=== PATIENT | female | born 1950 | race Caucasian/White ===

== ENCOUNTER 2022-03-05 15:05 | Inpatient (IN) | payer MEDICARE ==
[~2022-03-05] VITALS: Ht 157.5 cm; Wt 114.7 kg
[2022-03-05] MEDS ORDERED: BUSPIRONE HCL10 MG PO (15:23)
[2022-03-05] MEDS ORDERED: METFORMIN HCL500 MG PO (15:23)
[2022-03-05] MEDS ORDERED: PAROXETINE HCL10 MG PO (15:24)
[2022-03-05] MEDS ORDERED: LOVASTATIN20 MG PO (15:24)
[2022-03-05] MEDS ORDERED: LEVOTHYROXINE75 MC1 PO (15:25)
[2022-03-05] MEDS ORDERED: LISINOPRIL10 MG PO (15:25)
[2022-03-05] MEDS ORDERED: HYDROCHLOROTHIA25 MG PO (15:25)
[2022-03-05] MEDS ORDERED: PAXIL40 MG PO (15:26)
[2022-03-05] MEDS ORDERED: LATANOPROST2.5 ML OU (15:26)
[2022-03-05] MEDS ORDERED: BRIMONIDINE TART5 ML OU (15:27)
[2022-03-05] MEDS ORDERED: DORZOLAMIDE-TIM10 ML OD (15:27)
--- NOTE | 2022-03-05 18:15 | NUR ---
Report received from Luisa BOWDEN. Awaiting pt arrival to med surg unit room 112.
--- NOTE | 2022-03-05 18:40 | NUR ---
Pt arrives to med surg unit via stretcher. ON 4L NC O2, spo2 93%, no SOB, cough occasional, productive. VSS, A+O, IVF infusing WNL. IV ABx infusing. CBG checked 169, sandwich box provided. Pt ambulated to with SBA for 100ml void, concentrated and odorous. Tele #[address] Daughter Apple in room.
--- NOTE | 2022-03-05 19:34 | NUR ---
REPORT RECEIVED FROM DENNISE BRIGHT. pt RESTING IN BED AWAKE. IVF INFUSING WNL. IV ANTIBIOTIC COMPLETE. pt FORGETFUL OF CALL LIGHT, REORIENTED TO HOW TO CALL. BED ALARM SET. HR REGULAR RHYTHM ON TELE .
--- NOTE | 2022-03-05 20:10 | NUR ---
COMPLETED ADMISSION HISTORY, PT THEN UP TO [facility] [place], INCREASED SOB, WITH COMPLAINT OF LIGHT HEADNESS. VOIDED LESS THAN 25CC, PT STATES THAT SHE HASN'T BEEN DRINKING MUCH IN THE PAST 2 WEEKS. CHOSE TO SIT UP IN THE RECLINER CHAIR, THAT IS WHAT SHE SLEEPS ON AT HOME. REPLACED TELE LEADS, ALL PERSONAL SUPPLIES WITHIN REACH. WATER BOTTLE NEAR HER, AND SHE IS ENCOURAGED TO DRINK IT. ONCE IN RECLINER CHAIR, CHECKED O2 SATS, 90 ON 4L. PT STATES THAT SHE HAD A SLEEP STUDY DONE IN THE PAST, AND COULDN'T FINISH IT DUE TO THE MASK. BOUGHT A CPAP MACHINE FOR HOME, BUT DOESN'T LIKE THE MASK AND DOESN'T USE IT. WHEN ASKED ABOUT HER HOME OXYGEN SHE SAID THAT SHE BOUGHT A "MACHINE", BUT DOESN'T USE IT. PT STATED UNDERSTANDING OF NOT TO GET UP WITHOUT STAFF. CALL LIGHT IN HER LAP.
--- NOTE | 2022-03-05 21:12 | NUR ---
pt AWAKE, UP IN CHAIR. CBG 260, SS INSULIN ADMINSITERED. PO MEDICATIONS ADMINISTERED, EDUCATION PROVIDED. IV SITE FLUSHED WNL, IVF INFUSING ORDERED. ASSESSMENT COMPLETE. SPORADIC WHEEZES AUSCULTATED. 4.5L OXYGEN BY NC IN PLACE, SPO2 WNL. pt DEMONSTRATES ABILITY TO USE CALL LIGHT BEFORE GETTING OUT OF BED. CALL LIGHT AND ICE WATER IN REACH, PO FLUIDS ENCOURAGED. NO ADDITIONAL REQUESTS.
--- NOTE | 2022-03-05 21:31 | EKG ---
[facility] [address] [facility] [place], [place] [address] Signed Normal sinus rhythm Possible Left atrial enlargement Low voltage QRS Borderline ECG No previous ECGs available Confirmed by SEAN JEROME MD ([id number]) on 03/05/2022 9:30:55 PM Electronically Signed By: SEAN JEROME MD [id number]/05/[id number] PATIENT NAME: JASON HERNANDEZ UNIQUE Electrocardiogram DATE OF : 52 PHYSICIAN: SEAN JEROME MD REPORT #: [id number] REPORT IS CONFIDENTIAL AND NOT TO BE RELEASED WITHOUT AUTHORIZATION
--- NOTE | 2022-03-05 22:48 | NUR ---
CHECKED ON pt. RESTING IN CHAIR WITH EYES CLOSED. BREATHING EQUAL AND UNLABORED. NO DISTRESS NOTED. 4.5L OXYGEN BY NC IN PLACE. CALL LIGHT IN LAP. IVF INFUSING.
--- NOTE | 2022-03-05 23:11 | NUR ---
CALL LIGHT ANSWERED. SBA TO BSC FOR VOID, 200 ML CONCENTRATED URINE. BACK TO CHAIR. TELE IN PLACE. IVF INFUSING WNL. CALL LIGHT IN LAP. NO ADDITIONAL REQUESTS.
--- NOTE | 2022-03-06 01:50 | NUR ---
CALL LIGHT ANSWERED. SBA TO BSC TO VOID 200 ML CONCENTRATED URINE. GAIT STEADY. PT ABLE TO DO OWN AMPARO CARE. BACK TO RECLINER. PT REPORTS SOB WITH ACTIVITY. SpO2 93% WITH 4.5L/NC. HR 70'S. PT WITH NON PRODUCTIVE COUGH. BLANKET PROVIDED. NO FURTHER NEEDS. CALL LIGHT IN REACH.
--- NOTE | 2022-03-06 02:24 | NUR ---
IN pt ROOM FOR VS. pt AWAKE, UP IN CHAIR. DENIES SOB AT REST. VS COMPLETE, STABLE, SPO2 97% WITH 4.5L OXYGEN BY NC IN PLACE, TITRATED OXYGEN TO 2L, SPO2 93-95%. pt COUGHING, PRODUCTIVE, YELLOW TINGED SPUTUM. ASSESSMENT COMPLETE. EXPIRATORY WHEEZES AUSCULTATED, COARSE LLL. TELE IN PLACE, REGULAR RHYTHM. CALL LIGHT IN REACH. IVF INFUSING WNL. PO FLUIDS ENCOURAGED. NO ADDITIONAL REQUESTS.
--- NOTE | 2022-03-06 04:30 | NUR ---
CALL LIGHT ANSWERED. SBA TO BEDSIDE COMMODE. PATIENT IS BACK IN CHAIR. DENIES ANY FURTHER CARE NEEDS. CALL LIGHT WITHIN REACH.
--- NOTE | 2022-03-06 05:03 | NUR ---
pt AWAKE RESTING IN CHAIR. SPO2 WNL W 2L OXYGEN BY NC IN PLACE. pt DENIES SOB. VSS. DRINKING WATER. IVF INFUSING WNL. CALL LIGHT IN REACH.
--- NOTE | 2022-03-06 05:45 | NUR ---
pt TITRATED TO 2L OXYGEN BY NC THIS SHIFT. SOB WITH EXERTION, TITRATED TO 4L OXYGEN WITH MOVEMENT. SBA TO BSC FOR QS VOIDS. IV SL AFTER ONE LITER FLUID INFUSION COMPLETE PER ORDERS WNL. USING CALL LIGHT APPROPRIATELY. HR REGULAR RHYTHM ON TELE 10.
--- NOTE | 2022-03-06 05:54 | NUR ---
pt RESTING IN CHAIR, PO MEDICATION ADMINISTERED. pt DENIES ADDITIONAL NEEDS AT THIS TIME. CALL LIGHT IN REACH.
--- NOTE | 2022-03-06 07:15 | NUR ---
Report received from Ronda BOWDEN. Pt resting in bed with eyes closed, even and unlabored respirations on 2L NC O2. No needs identified at this time, call light in reach, will continue plan of care.
--- NOTE | 2022-03-06 08:52 | NUR ---
Scheduled medications administered and assessment complete. Pt resting in chair, awakens to voice/touch. Pt has occasional productive cough with yellow/green phlegm, exp wheeze and coarse lung sounds noted. pt ambulates to BR with SBA to void- concentrated urine noted. Back to chair for breakfast. IV ABX infusing WNL. 3 units SS insulin provided. Tele #[address] VSS, A+O. Pt educated extensively about current illness and tx. Call light in reach.
--- NOTE | 2022-03-06 10:32 | NUR ---
PATIENT SITTING IN CHAIR WATCHING TV. DAUGHTER IN ROOM. VITALS AND I&O'S CHARTED. CALL LIGHT IN REACH. NO FURTHER NEEDS AT THIS TIME.
--- NOTE | 2022-03-06 10:52 | NUR ---
Tatyana is awake and alert this morning. Upon entering the room Tatyana is visiting with her daughter Saniya Monroy and kaley alejo Tatyana plans to discarge to home where she lives with her adult children and granddaughter. Tatyana feels that her discharge plan is safe. She states that family members are in the home to help if needed. Saniya Monroy will be home with her to drive her for prescriptions, appts., etc. Both deny questions or concerns at this time. Tatyana does feel that she has the resources that she need to continuous pickling line pickler prescriptions, pay utility bills, food, etc.
--- NOTE | 2022-03-06 11:50 | NUR ---
Rounded on patient who is sitting up in chair. No SOB at this time, saline locked, A+O. Daughter at bedside. No needs at this time. Call light in reach.
[2022-03-06] MEDS ORDERED: DAILY VALUE1 EACH PO (12:46)
[2022-03-06] MEDS ORDERED: VITAMIN B-1250 MCG PO (12:47)
[2022-03-06] MEDS ORDERED: COLLANEX1 GM PO (12:48)
--- NOTE | 2022-03-06 14:13 | NUR ---
PATIENT SITTING UP IN CHAIR TALKING WITH DAUGHTER. VITALS AND I&O'S CHARTED. PATIENT SET UP FOR SHOWER. PATIENT SHOWERED INDEPENDENTLY. CALL LIGHT IN REACH. NO FURTHER NEEDS AT THIS TIME.
--- NOTE | 2022-03-06 15:38 | NUR ---
Assessment of pt complete. Pt sitting up in chair on her computer, on 2L NC, 94% at this time with no SOB. Pt states that shower was "helpful" and she "coughed up a lot of gunk". Yellow/green sputum noted on tissue. Pt daughter in room, attentive to patient and engaged in care.
--- NOTE | 2022-03-06 16:25 | NUR ---
REPORT RECEIVED FROM DENNISE BRIGHT. THIS RN ASSUMING CARE OF PT.
--- NOTE | 2022-03-06 16:37 | NUR ---
Patient's daughter Saniya takes home all of patients home medication bottles at this time.
--- NOTE | 2022-03-06 16:57 | NUR ---
PT HERE FOR COMMUNITY ACCUIRED RIGHT LOWER LOBE PNEUMONIA. PT UP WITH STAND BY ASSIST TO RESTROOM AND TO CHAIR FOR MEALS THIS SHIFT. SHORT OF BREATH WITH ACTIVITIES. COUGH CONTINUES WIHT YELLOW SPUTUM NOTED. PT WEANED TO 2L O2 BY NC THIS SHIFT AND IS MAINTAINING OXYGEN SATURATIONS ABOVE 92%. TELEMETRY MONITORING DC'D. BLOOD SUGAR CHECKS WITH MEALS, SLIDING SCALE INSULIN GIVEN. DEPENDS IN PLACE FOR FEAR OF URGENCY INCONTINANCE. PT VOIDING QUANTITY SUFFICIENT, PO FLUIDS ENCOURAGED. PT USES CALL LIGHT AND MAKES NEEDS KNOWN.
--- NOTE | 2022-03-06 17:23 | NUR ---
THIS RN TO ROOM TO CHECK ON PT. MEDICATION DUE. PT FINISHED WITH DINNER, AT ~50%. PT ENCORUAGED TO DRINK PO FLUIDS. PT DENIES PAIN AND NAUSEA. MEDICATIONS GIVEN. PT ASSISTED WITH FINDING INFORMATION ABOUT PNEUMONIA. EDUCATION DONE WITH PT REGARDING PNEUMONIA AND HANDOUTS PROVIDED. PT ASKS QUESTIONS AND IS INVOLVED IN DISCUSSION. PT STATES HER QUESTIONS HAVE BEEN ANSWERED. NO ADDITIONAL REQUESTS OR COMPLAINTS. CALL LIGHT WITHIN REACH.
--- NOTE | 2022-03-06 18:01 | NUR ---
PATIENT IN CHAIR ON PERSONAL COMPUTER. VITALS AND I&O'S CHARTED. CALL LIGHT IN REACH. NO FURTHER NEEDS AT THIS TIME.
--- NOTE | 2022-03-06 18:18 | NUR ---
THIS RN TO ROOM TO CHECK ON PT. PT HAS EYE DROPS FROM HOME, GIVEN TO PHARMACIST FOR VARIFICATION. PT VERBALIZES UNDERSTANDING OF PLAN FOR EYE DROP USE. PT STATES SHE IS PLANNING TO "LEAVE THE REFRIGERATED ONE AT HOME." PT WORKING ON COMPUTER. PT DENIES PAIN AND NAUSEA. NO ADDITONAL REQUESTS OR COMPLAINTS AT THIS TIME. CALL LIGHT WITHIN REACH.
--- NOTE | 2022-03-06 19:13 | NUR ---
IN ROOM FOR REPORT, PT DENIES NEEDS AT THIS TIME. CALL LIGHT IS CLOSE.
--- NOTE | 2022-03-06 20:32 | NUR ---
BLOOD GLUCOSE OF 23 IS NOT ACCURATE, PLEASE DISREGARD. MAY NOT HAVE WIPED ALCOHOL FIRST.
--- NOTE | 2022-03-06 20:55 | NUR ---
IN ROOM TO ASSESS PT AND ADMINISTER MEDICATIONS. TOOKS PT'S BLOOD SUGAR THE MACHINE HAD AN INACCURATE READ, RETOOK IT AND IT WAS 132. PT DX AND SX OF LOW BLOODSUGAR. PT ALSO DENIES PAIN AND NAUSEA. PT REPORTS A PRODUCTIVE COUGH AND SOB SOB WITH EXERTION. WHEN PT WAS UP TO USE THE RESTROOM SBA HER O2 CAME DOWN TO 88% ON 2LNC BUT SHE QUICKLY RECOVERED AFTER BEING IN CHAIR FOR A MINUTE OR TWO. EXP WHEEZES AUSCULTATED AND ANAYA R.T. FOR A DUONEB TRT. PT HAS FRESH ICEWATER AND VS TAKEN. PT DENIES FUTHER NEEDS. CALL LIGHT IS CLOSE.
--- NOTE | 2022-03-06 22:29 | NUR ---
PT IS RESTING WITH EYES CLOSED, RR IS EVEN AND UNLABORED. CALL LIGHT IS CLOSE.
--- NOTE | 2022-03-06 23:12 | NUR ---
PT CALLED FOR ASSISTANCE TO RESTROOM, SHE IS NOW BACK IN CHAIR. SHE DENIES FURTHER NEEDS AT THIS TIME. CALL LIGHT IS CLOSE.
--- NOTE | 2022-03-07 01:06 | NUR ---
PT IS RESTING WITH EYES CLOSED, RR IS EVEN AND UNLABORED. CALL LIGHT IS CLOSE.
--- NOTE | 2022-03-07 03:40 | NUR ---
CALL LIGHT ANSWERED. SBA TO BR TO VOID. GAIT STEADY. BACK TO RECLINER, DEJON WELL. NO FURTHER NEEDS. CALL LIGHT IN REACH.
--- NOTE | 2022-03-07 03:55 | NUR ---
IN ROOM TO CHECK ON PT SINCE SHE WAS JUST UP TO USE THE RESTROOM. PT DENIES PAIN AT THIS TIME AND STATES SHE HAD NO SOB WHILE UP TO THE RESTROOM. SHE REMAINS ON 2LNC AND IS RESTING COMFORTABLY STATING SHE SLEPT FOR THE LAST 3 HOURS OR SO. PT DENIES NEEDS AT THIS TIME. CALL LIGHT IS CLOSE.
--- NOTE | 2022-03-07 04:12 | NUR ---
PT CALLED TO HAVE LEEANNE MOVED CLOSER TO HER. PROVIDED FRESH ICEWATER AND PT DENIES FURTHER NEEDS. CALL LIGHT IS CLOSE.
--- NOTE | 2022-03-07 06:25 | NUR ---
IN ROOM TO GET VS AND ADMINISTER THYROID MEDICATION. PT DENIES NEEDS AT THIS TIME. CALL LIGHT IS CLOSE. DECREASED O2 TO 1 LNC AT 93% SPO2.
--- NOTE | 2022-03-07 07:23 | NUR ---
REPORT RECEIVED FROM DENNISE KNAPP. PT UP TO CHAIR, RESTING WITH EYES CLOSED, RESPRATIONS EVEN AND UNLABORED. CALL LIGHT WITHIN REACH. PT ALLOWED TO REST UNDESTURBED.
--- NOTE | 2022-03-07 08:10 | NUR ---
PATIENT IS UP IN CHAIR. BLOOD GLUCOSE IS 124 AND REQUIRES NO INSULIN COVERAGE.
--- NOTE | 2022-03-07 08:36 | NUR ---
DR. JEROME IN TO SEE PATIENT.
--- NOTE | 2022-03-07 08:51 | NUR ---
MORNING ASSESSMENT AND MEDICATION DUE. PT UP TO CHAIR EATING BREAKFAST. PT DENIES PAIN AND NAUSEA. PT REPORTS "ONCE I FEEL ASLEEP, I SLEPT REALLY HARD." IV ASSESSED, WNL. NO S/S OF PHELBITIS NOTED. IV ABX STARTED. PT ALERT AND ORIENTED TO ALL. HEART TONES REGULAR. EXPRIARTORY WHEEZE WITH ASCULATATION OF LUNGS. RT CALLED FOR PRN BREATHING TREATEMENT. PT CONTINUES TO REPORTS DYSPNEA ON EXERTION. LOOSE COUGH CONTINUES WITH YELLOW THICH SPUTUM, PT REPORTS IMPROVING. PT WEANED TO ROOM AIR AND MAINTAINS OXGYEN SATURATIONS FROM 93-96% ON ROOM AIR. HEART TONES REGULAR. BOWEL TONES HYPOACTIVE. LAST BM NOTE TO BED 03/04. PT DENIES CONSTIPATION AND DECLINES BOWEL MEDICATIONS AT THIS TIME. UMBILICAL HERNIA UNCHANGED. RT TO BEDSIDE FOR BREATHING TREATEMENT. NO ADDITIONAL NEEDS AT THIS TIME. CALL LIGHT WITHIN REACH.
--- NOTE | 2022-03-07 09:20 | NUR ---
PT IS SITTING UP IN CHAIR WATCHING TV. I&O AND VS CHARTED CALL LIGHT WITHIN REACH NO FURTHER TASKS AT THIS TIME
--- NOTE | 2022-03-07 09:40 | NUR ---
THIS RN TO ROOM TO CHECK ON PT. PT ASSISTED WITH CONNECTING HER COMPUTER TO THE INTERNET. DRESSING TO IV SITE NOTED TO BE LOOSE. IV DRESSING CHANGED PER PROTOCOL. NO ADIDTIONAL NEEDS AT THIS TIME. OXGYEN SATURATION 92% ON ROOM AIR. CALL LIGHT WITHIN REACH.
--- NOTE | 2022-03-07 10:25 | NUR ---
PUMP ALARMING, INFUSION AND FLUSH COMPLETE. IV ASSESSED, WNL. FLUSHED AND SALINE LOCKED, ALCOHOL CAP APPLIED. STAND BY ASSIST UP TO RESTROOM. PT VOIDS WITHOUT ISSUE. PT PERFORMS SELF AMPARO CARE. STAND BY ASSIST BACK TO CHAIR. NO ADDITIONAL REQUESTS OR COMPLAINTS. OXGYEN SATURATION OF 93% ON ROOM AIR. PT UP TO AMBULATE IN [place] WITH FWW AND STAND BY ASSIST. OXYGEN SATURATIONS FLUCTUATE FROM 88-92% WITH ACTIVITY. PT BACK TO ROOM AND REMAINS UP TO CHAIR. OXGEYN SATURATIONS RECOVER TO 92-95% ON ROOM AIR AFTER 2 MINUTES OF REST. PT DENIES ADDITIONAL REQUESTS OR COMPLAINTS. CALL LIGHT WITHIN REACH.
--- NOTE | 2022-03-07 11:35 | NUR ---
THIS RN TO ROOM TO CHECK ON PT. PT REMAINS UP TO CHAIR. WATCHING TV. PT DENIES PAIN OR NAUSEA. BLOOD SUGAR TAKEN, WNL, NO INSULIN NEEDED. VERBAL ORDERS FROM MD FOR I.S. AND ACCAPELLA. I.S. PROVIVDED AND INSTRUCTION DONE. PT DEMONSTRATES UNDERSTANDING REACHING 1000-1250ML X5. RT TO BEDSIDE FOR ACAPELLA INSTRUCTION. PT DEMONSTRATES USE OF ACAPELLA X5. PT DENIES ADDITIONAL REQUESTS OR COMPLAINTS. CALL LIGHT WITHIN REACH.
--- NOTE | 2022-03-07 12:28 | NUR ---
THIS RN TO ROOM TO CHECK ON PT. PT FINISHED WITH LUNCH AND STATES "THAT WAS THE BEST LUNCH I'VE HAD IN A LONG TIME." PT AT 100% OF HER FOOD. PT DENIES PAIN AND NASUEA. PT DEMONSTARTES USE OF I.S. X5 REACHING 1000-1250ML AND ACAPELLA X5 WELL. PT CONFIRMS THAT SHE IS "MUCH BETTER" TODAY. NO ADDITIONAL REQUESTS OR COMPLAINTS. CALL LIGHT WITHIN REACH.
--- NOTE | 2022-03-07 14:01 | NUR ---
AFTERNOON ASSESSMENT DUE. PT REMAINS UP TO CHAIR. PT VISITING WITH GRANDDAUGHTER. PT ABLE TO TALK IN COMPLETE SENTENCES AND PARAGRAPHS WITHOUT STOPPING TO CATCH HER BREATH. PT DENIES PAIN AND NAUSEA. IV REMAINS WNL, NO S/S OF PHLEBITIS NOTED. PT REMAINS ALERT AND ORIENTED TO ALL. LUNG SOUNDS CLEAR THROUGHOUT. OXGYEN SATURATION OF 92-94% ON ROOM AIR. PT REPORTS COUGH IS LESS FREQUENT TODAY WITH "OCCATIONAL" GREEN/YELLOW SPUTUM. PT DEMONSTRATES USE OF I.S. REACHIGN 1250ML X5 AND CORENT X5. PT REPORTS WORKING ON THESE BREATHING EXERCISES "A LOT." HERNIA UNCHANGED TO MID ABDOMEN. PT BRACING ABDOMENT WITH COUGH. PT DENIES ADDITIONAL REQUESTS OR COMPLAINTS. CALL LIGHT WITHIN REACH. PT CONTINUES VISITING WITH FAMILY.
--- NOTE | 2022-03-07 14:08 | NUR ---
PT ALERT, ORIENTED AND SITTING IN CHAIR WITH PERSONAL FAN ON. PT SEEMED PLEASED I STOPPED BY, PLEASED WITH CARE. GAVE G.POST, BLESSING AND WILL CONTINUE TO FOLLOW
--- NOTE | 2022-03-07 15:03 | NUR ---
PT HERE FOR RIGHT LOWER LOBE PNEUMONIA. PT UP WITH STAND BY ASSIST AND FWW WALKER TO RESTROOM AND TO AMBULATE IN [place] THIS SHIFT. PT TOELRATING 60 GRAM CARB DIET WITH GOOD APPITITE. PT WEANED TO ROOM AIR THIS SHIFT, TOLERATING WITH OXGYEN SATURATIONS ABOVE 92%. I.S. AND CORENT PROVIDED AND USED THIS SHIFT. IV ABX GIVEN. LUNG SOUNDS WHEEZY TO CLEAR THIS SHIFT, PRN NEBULIZER TREATMENTS. BLOOD SUGAR CHECKS WITH MEALS WITH SLIDING SCALE INSULIN. BOWEL TONES HYPOACTIVE. PT DECELINES BOWEL MEDICATIONS. PT VOIDING QUANTITY SUFFICIENT. PT USES CALL LIGHT AND MAKES NEEDS KNOWN.
--- NOTE | 2022-03-07 15:23 | NUR ---
THIS RN TO ROOM TO CHECK ON PT. PT ENCORUAGED TO AMBUALTE. PT TALKING ON PHONE AND STATES "OH YES, AFTER I'M DONE TALKING." PT DENIES PAIN AND NAUSEA. PT REPORTS SHE WILL CALL WHEN FINISHED WITH HER CONVERSATION. NO ADDITIONAL NEEDS. CALL LIGHT WIHTIN REACH. BED RAILS UP.
--- NOTE | 2022-03-07 16:29 | NUR ---
walked pt around med-surg unit. DENNISE leos took over half way through.
--- NOTE | 2022-03-07 16:39 | NUR ---
PT CALL LIGHT ON. PT REPORTS SHE IS READY TO AMBULATE IN THE [place]. PT UP WITH STAND BY ASSIST AND FWW TO AMBULATE IN [place] X1 LAP. PT STOPS ONCE TO REST. PT BACK TO ROOM. NOTED TO DROP TO 88-90% WITH AMBULATION. WITH ENCORUAGMENT TO DEEP BREATH PT RECOVERES TO 90% WHILE AMBULATING. ONCE BACK TO CHAIR PT RECOVERS WITHIN 1-2 MINUTS TO 95% ON ROOM AIR. PT DEMONSRATES USE OF I.S. X5 AND CORENT X5. PT REACHES 1250ML ON I.S. ICE WATER REFILLED. PT DENIES ADDITIONAL REQUESTS OR COMPLAINTS. PT TALKING AND TELLING LONG STORIES WITHOUT NEEDING TO STOP TO CATCH HER BREATH. CALL LIGHT WITHIN REACH.
--- NOTE | 2022-03-07 17:07 | NUR ---
Tatyana has been up ambulating with the staff this afternoon, she does have a drop in oxygen saturattions with ambulation, she does recover with rest. She states that she does not feel ready to go home at this time. She feels her care is good, but also feels that she needs to feel better and be stronger in her ambulation prior to going home as she does not want to end up back in the hospital.
--- NOTE | 2022-03-07 17:25 | NUR ---
PTS DAUGHTER BROUGHT IN PTS HOME EYE DROPS THAT MUST BE REFRIGERATED. EYE DROPS BROUGHT TO PHARMCIST FOR VARIFICATION AND WILL BE PLACED IN PTS CUBBIE IN THE REFRIGERATOR.
--- NOTE | 2022-03-07 17:39 | NUR ---
THIS RN TO ROOM TO CHECK ON PT. PT REMAINS UP TO CHAIR, EATING DINNER AND TALKING ON PHONE. PT DOES NOT NEED TO STOP TO CATCH HER BREATH AND STATES "WELL I'M SUDANESE, WHEN I FEEL GOOD ALL I DO IS TALK." PT DENIES REQUESTS OR COMPLAINTS. CALL LIGHT WITHIN REACH.
--- NOTE | 2022-03-07 19:25 | NUR ---
IN ROOM FOR REPORT,PT IS AWAKE IN THE CHAIR AND DENIES NEEDS AT THIS TIME. CALL LIGHT IS CLOSE.
--- NOTE | 2022-03-07 22:31 | NUR ---
IN ROOM TO ADMINISTER EVENING MEDICATIONS AND ASSESS PT. ADMINISTERED TYLENOL FOR A HEADACHE 12/14. ALSO ADMINISTERED PRN DUONEB TRT THERE IS NO R.T. TONIGHT, PT'S O2 WAS BOUNCING AROUND BETWEEN 88-92% ON ROOM AIR. PT DENIES SOB BUT STATES SHE HAD A LITTLE WHEN SHE WAS UP TO THE RESTROOM LAST TIME. VS TAKEN AND ENTERED. PT DENIES FURTHER NEEDS AT THIS TIME, CALL LIGHT IS CLOSE.
--- NOTE | 2022-03-08 00:13 | NUR ---
PT IS RESTING WITH EYES CLOSED, RR IS EVEN AND UNLABORED. CALL LIGHT IS CLOSE.
--- NOTE | 2022-03-08 02:38 | NUR ---
PT IS RESTING WITH EYES CLOSED, RR IS EVEN AND UNLABORED. CALL LIGHT IS CLOSE.
--- NOTE | 2022-03-08 04:18 | NUR ---
PT IS RESTING WITH EYES CLOSED, RR IS EVEN AND UNLABORED. CALL LIGHT IS CLOSE.
--- NOTE | 2022-03-08 05:47 | NUR ---
IN ROOM TO ADMINISTER THYROID MEDICATION AND TYLENOL FOR 4/10 HEADACHE. PT DENIES FURTHER NEEDS. CALL LIGHT IS CLOSE.
--- NOTE | 2022-03-08 07:40 | NUR ---
Patient resting in chair, no notable distress. Patient is on room air at this time. Personal supplies and call light within reach.
[2022-03-08] MEDS ORDERED: LEVOFLOXACIN750 MG PO (09:42)
[2022-03-08] MEDS ORDERED: IPRAT-ALBUT 0.5-3 ML INH (09:44)
[2022-03-08] MEDS ORDERED: LEVOTHYROXINE75 MCG PO (09:59)
--- NOTE | 2022-03-08 10:17 | NUR ---
PT SITTING IN CHAIR, LEANING ON TABLE-SEEMS TO BE A COMFORTABLE POSITION FOR PT. PT SAID SHE IS TO DC TODAY-BUT ISN'T SURE SHE FEELS STRONG ENOUGH. GAVE ENCOURAGEMENT, IV ALARM SUNDING. DENNISE RODRIGUEZ WILL CARE FOR PT. SHARED WITH HER PT'S CONCERN ABOUT DC TODAY. WILL FOLLOW
== END 2022-03-08 12:30 | disposition home or self-care (01) | DRG 193 ==
LOC: ED 15:05 → MS 18:10
PROVIDERS: ADMIT Internal Medicine; ATTEND Internal Medicine
DX: J13 Pneumonia due to Streptococcus pneumoniae (principal); J96.01 Acute respiratory failure with hypoxia; J44.0 Chronic obstructive pulmonary disease with (acute) lower respiratory infection; I10 Essential (primary) hypertension; Z20.822 Contact with and (suspected) exposure to COVID-19; E11.9 Type 2 diabetes mellitus without complications; E66.01 Morbid (severe) obesity due to excess calories; E03.9 Hypothyroidism, unspecified; E87.6 Hypokalemia; F41.8 Other specified anxiety disorders; E78.5 Hyperlipidemia, unspecified; Z88.0 Allergy status to penicillin
CPT/HCPCS: 36415; 71045; 80048; 80053; 82803; 83605; 83880; 84484; 85025; 87502; 93005; 93010; 94640; 94667; 94760; A9270; C9803; J1650; J1815; J1956; J2930; J3480; U0003

== ENCOUNTER 2022-10-01 13:23 | Inpatient (IN) | payer MEDICARE ==
[~2022-10-01] VITALS: Ht 157.5 cm; Wt 114.9 kg
[~2022-10-01 13:23] MED LIST: BRIMONIDINE TART5 ML OU; BUSPIRONE HCL10 MG PO; COLLANEX1 GM PO; DAILY VALUE1 EACH PO; DORZOLAMIDE-TIM10 ML OD; HYDROCHLOROTHIA25 MG PO; IPRAT-ALBUT 0.5-3 ML INH; LATANOPROST2.5 ML OU; LEVOFLOXACIN750 MG PO; LEVOTHYROXINE75 MC1 PO; LEVOTHYROXINE75 MCG PO; LISINOPRIL10 MG PO; LOVASTATIN20 MG PO; METFORMIN HCL500 MG PO; PAROXETINE HCL10 MG PO; PAXIL40 MG PO; VITAMIN B-1250 MCG PO
--- NOTE | 2022-10-01 19:48 | NUR ---
PATIENT ARRIVED TO THE FLOOR VIA STRETCHER. PATIENT AMBULATED FROM STRETCHER TO BR A SBA. PATIENT ABLE TO VOID. PATIENT IS IN BED RESTING. PATIENTS INTAKE AND OUTPUT RECORDED. PATIENTS ADMISSION COMPLETED. PATIENT IS ON 3L VIA NC. IV FLUSHED AND SL PER ORDER. PATIENT PLACED ON TELE #6. ALL QUESTIONS ANSWERED. REPORT GIVEN TO JANNIE BOWDEN.
--- NOTE | 2022-10-01 20:30 | NUR ---
pt RESTING IN BED, 3L OXYGEN BY NC IN PLACE. TELE 6 APPLIED PER ORDERS, SR. ORIENTATION TO ROOM PROVIDED. CALL LIGHT AND PERSONAL SUPPLIES IN REACH. SANDWICH BOX PROVIDED, ICE WATER REFILLED. pt DENIES TOILETING OR ADDITIONAL NEEDS. VERBALIZES UNDERSTANDING TO USE CALL LIGHT BEFORE GETTING OUT OF BED. PRIMARY RN PRIYA BACK IN ROOM TO ASSESS pt.
--- NOTE | 2022-10-01 20:56 | NUR ---
ASSESMENT COMPLETED. PATIENT IS RESTING IN BED EATING AND WATCHING TV. PATIENT DENIES ANY NEEDS AT THIS TIME. CALL LIGHT IN REACH.
--- NOTE | 2022-10-01 22:28 | NUR ---
PATIENT TITRATED TO 4L VIA NC. PATIENT IS RESTING IN BED. SCHEDULED MEDS GIVEN PER ORDER. PATIENT DENIES ANY SOB. NO NEEDS NOTED. CALL LIGHT IN REACH.
--- NOTE | 2022-10-01 23:31 | NUR ---
CALLED M/S TO REPORT PT OXYGEN DESATURATION TO THE LOW 80'S. SPOKE WITH INVESTMENT PROFESSIONAL BAILEY
--- NOTE | 2022-10-01 23:42 | NUR ---
CCU NOTIFIED, SPO2 DROPS TO 78% ON TELE CPOX. pt COUGHING, 4L OXYGEN BY NC IN PLACE. OXYMASK APPLIED, TITRATED TO 5L OXYGEN. SPO2 INCREASES TO 92%. pt SITTING FORWARD IN BED, TRIPOD POSITION. PHONE CALL TO MD, NEW ORDERS RECEIVED AND REPEATED BACK FOR PRN NEB TREATMENTS. RT PHONED FOR TREATMENT.
--- NOTE | 2022-10-02 00:17 | NUR ---
PATIENT SITTING UP IN BED WITH EYES CLOSED, RR 20. CALL LIGHT IN REACH. PATIENT IS ON 5L VIA OXYMASK. CALL LIGHT IN REACH.
--- NOTE | 2022-10-02 03:15 | NUR ---
PATIENTS ASSESMENT COMPLETED. VITALS TAKEN AND RECORDED. INTAKE AND OUTPUT RECORDED. PATIENT TITRATED TO 4L VIA OXYMASK. PATIENT DENIES ANY NEEDS. PATIENT DENIES ANY SOB. CALL LIGHT IN REACH. IV INFUSING PER ORDER.
--- NOTE | 2022-10-02 04:51 | NUR ---
PATIENT IS RESTING IN BED WITH EYES CLOSED, RR 18. PATIENT HAS OXYMASK @ 4L IN USE. PATIENTS CALL LIGHT IN REACH. IV INFUSING PER ORDER.
--- NOTE | 2022-10-02 05:59 | NUR ---
PATIENT IS RESTING IN BED WITH EYES CLSOED, RR 19. CALL LIGHT IN REACH.
--- NOTE | 2022-10-02 07:15 | NUR ---
RECEIVED REPORT FROM PRIYA BOWDEN. PT RESTING IN BED WITH EYES CLOSED, RESPIRATIONS EVEN AND UNLABORED. CALL LIGHT WITHIN REACH.
--- NOTE | 2022-10-02 08:30 | NUR ---
IN ROOM FOR MORNING MEDICATION AND ASSESSMENT. PT SITTING IN CHAIR PLAYING ON LAPTOP. PT RESPIRATIONS EVEN AND UNLABORED ON 5LNC. PT DENIES PAIN OR FURTHER NEEDS. PT HAS LR WITH K GOING AT 75ML/HR. CALL LIGHT WITHIN REACH WELL PT BELONGINGS.
--- NOTE | 2022-10-02 10:02 | NUR ---
IN ROOM TO ASSIST PT OUT OF BATHROOM AND BACK TO CHAIR SBA. DESENEX POWDER PLACED ON PT WITH PT STATING SHE HAS RELIEF OF PAIN. PT ON 5L NC AND TELEMETRY IN PLACE WITH LR INFUSING. PT DENIES NEEDS AT THIS TIME.
--- NOTE | 2022-10-02 10:52 | NUR ---
SITTING UP IN CHAIR WATCHING TV.PLAN IS TO GO HOME WITH FAMILY AND FRIENDS. HAS 7 STAIRS TO GET UP STAIRS TO BEDROOM. HAS A CANE TO USE NEEDED. HAS NO PROBLEM PROVING FOOD FOR FAMILY OR PROVIDING MEDICATIONS WHEN NEEDED.
--- NOTE | 2022-10-02 12:26 | NUR ---
PT SITTING IN CHAIR AND EATING LUNCH. PT CALL LIGHT WITHIN REACH AND BEDRAILS UP FOR SAFETY. NO COMPLAINTS AT THIS TIME.
[2022-10-02] MEDS ORDERED: ALBUTEROL2.5 MG/3 M INH (13:05)
[2022-10-02] MEDS ORDERED: VENTOLIN HFA18 GM INH (13:06)
--- NOTE | 2022-10-02 13:09 | NUR ---
medications reconciled using pharmacy records and PCP chart notes
--- NOTE | 2022-10-02 13:25 | NUR ---
PT SITTING IN CHAIR IN ROOM WATCHING TV. IV CHANGED PER PROTOCOL FOR FIELD STARTS. PT TOLERATED WELL. DENIES PAIN. REQUESTED A DESIRE TX FOR SHORTNESS OF BREATH. CALL LIGHT WITHIN REACH.
--- NOTE | 2022-10-02 14:20 | NUR ---
PT ASSISTED TO AND FROM BATHROOM WITH SBA. PT SITTING IN CHAIR WATCHING TV. DENIES FURTHER NEEDS, REPORTS FEELING BETTER AFTER RECEIVING A NEB TX. NO NEEDS AT THIS TIME
--- NOTE | 2022-10-02 15:25 | NUR ---
PT SITTING IN CHAIR, CALL LIGHT WITHIN REACH AND PT BELONGINGS AT BEDSIDE. PT REPORTS DAUGHTER WILL BE BRINGING IN ADDITIONAL MEDICATION FOR PHARMACY TO SET UP FOR USE. INFORMED PT TO CALL WHEN MEDICATION ARRIVES. PT SITTING IN CHAIR WATCHING TV. DENIES NEEDS AT THIS TIME.
--- NOTE | 2022-10-02 17:30 | NUR ---
PT RESTING IN BED, CALL LIGHT WITHIN REACH, BEDRAILS UP FOR SAFETY. PT REQUESTED MASK TEMPORARILY FOR RELIEF FROM NASAL CANNULA DUE TO IRRITATING NOSE. PT HAS BEEN IN [employer]IR[employer], WATCHING TV AND LAUGHING, INTERACTING WITH STAFF. PT RECEIVED ONE NEB TX DUE TO SHORTNESS OF BREATH AND REPORTED RELIEF FROM SYMPTOMS. PT ADMITTED FOR FLU WITH PNEUMONIA. PT HAS COURSE LUNG SOUNDS AND IS ON 4L OXYMASK. PT DENIES PAIN AND NAUSEA DURING SHIFT.
--- NOTE | 2022-10-02 18:20 | NUR ---
PT SITTING IN CHAIR IN ROOM WATCHING TV. PT DENIES NEEDS AT THIS TIME. RESPIRATIONS EVEN AND UNLABORED. CALL LIGHT WITHIN REACH.
--- NOTE | 2022-10-02 19:58 | NUR ---
RECEIVED REPORT FROM DAY SHIFT RN. PATIENT ASSISTED TO THE BR A SBA. PATIENT ABLE TO VOID AND HAVE BM. PATIENT IS BACK IN RECLINER RESTING. PATIENT DENIES ANY FURTHER NEEDS. CALL LIGHT IN REACH.
--- NOTE | 2022-10-02 21:53 | NUR ---
PATIENT ASSEMENT COMPLETED. PATIENT ASSISTED TO THE BR A SBA. PATIENT BACK IN RECLINER RESTING. PATIENT PLACED ON OXYMASK FOR COMFORT PER PATIENT REQUEST. PATIENT IS NOW ON 4L VIA OXYMASK. VITALS TAKEN AND RECORDED. INTAKE AND OUTPUT RECORDED. PATIENTS IV INFUSING PER ORDER. PATIENTS SCHEDULED MEDS GIVEN PER ORDER. PATIENT DENIES ANY SOB. PATIENTS TELE LEADS REPLACED. PATIENT IS ON SR. PATIENT PROVIDED WITH FRESH ICE WATER. NO FURTHER NEEDS NOTED. CALL AND BELONGINGS ARE WITH IN REACH.
--- NOTE | 2022-10-02 23:43 | NUR ---
PATIENT IS RESTING IN RECLINER. PATIENT PROVIDED WITH PILLOWS AND SHEET. PATIENT ASSISTED TO PUT FEET UP. PATIENT DENIES ANY FURTHER NEEDS. PATIENT WAS PLACED BACK IN NC BY RT. CALL LIGHT IN REACH. IV INFUSING PER ORDER.
--- NOTE | 2022-10-03 02:40 | NUR ---
PATIENT IS RESTING IN RECLINER, RR 18. CALL LIGHT IN REACH.
--- NOTE | 2022-10-03 04:36 | NUR ---
PATIENT CALLED AND REQUESTED NEB. RT ADMIN NEB. PATIENT ASSISTED TO THE BR A SBA. PATIENT ABLE TO VOID. PATIENT IS BACK IN RECLINER RESTING. PATIENTS VITALS TAKEN AND RECORDED. INTAKE AND OUTPUT RECORDED. IV INFUSING PER ORDER. PATIENT REMAINS ON 2L VIA NC. PATIENT PROVIDED W/FRESH ICE WATER. PATIENT SOB DURIN ACTIVITY BUT RECOVERED ONCE RESTING BACK IN RECLINER. PATIENT DENIES ANY FURTHER NEEDS. CALL LIGHT IN REACH.
--- NOTE | 2022-10-03 06:02 | NUR ---
PATIENTS AM MEDS GIVEN PER ORDER. PATIENT IS RESTING IN RECLINER. PATIENT REMAINS ON 2L VIA NC. PATIENTS IV INFUSING PER ORDER. PATIENT DENIES ANY FURTHER NEEDS. CALL LIGHT AND BELONGINGS ARE WITH IN REACH.
--- NOTE | 2022-10-03 07:37 | NUR ---
REPORT RECIVED. PT IN CHAIR WITH EYES CLOSED. TELE [address] SINUS MARVIN AT 50. RR EQUAL AND NON-LABORED. CALL LIGHT IN REACH.
--- NOTE | 2022-10-03 07:44 | NUR ---
CBG TAKEN, 141, WATER REFILLED. PT SLEEPING IN RECLINER W/FEET ELEVATED. CALL LIGHT IN REACH
--- NOTE | 2022-10-03 09:27 | NUR ---
OFFERED PT A SHOWER TODAY, SHE REFUSED. I ASKED HER IF I WOULD BE ABLE TO HELP HER WITH A BED BATH SHE AGREED TO THAT BUT "A LITTLE LATER IN THE DAY". WILL FOLLOW UP WITH HER AFTER LUNCH.
--- NOTE | 2022-10-03 10:00 | NUR ---
ASSESSMENT COMPLETED. PT UP IN CHAIR. ATE 50% OF BREAKFAST. DENIES PAIN. IS C/O COUGH. ROBITUSSIN ADMINSTERED. LUNGS WITH EXP WHEEZING. RT CALLED FOR NEB TREATMENT PER PT REQUEST. EDEMA 2+ IN BILAR LE. PT IS ALERT AND ORIENTED .X3. TITRATED TO 1L NC. SATURATIONS 93%. TELE AND PULSE OX IN PLACE. CALL LIGHT IN REACH. PT DENIES FURTHER NEEDS.
--- NOTE | 2022-10-03 10:45 | NUR ---
PATIENT IS SITTING IN A CHAIR WATCHING TV.PATIENT'S PLAN OF CARE REMAINS UNCHANGED. PATIENT WILL GO HOME WITH FAMILY. PATIENT STATES SHE DOES NOT WANT DME. FAMILY WILL HELP WITH PATIENT'S ADLS.
--- NOTE | 2022-10-03 12:41 | NUR ---
TRIED TO TITRATE PT TO RA. SAS SUSTAINED AT 88%. REPLACED 1L NC. PT EATING LUNCH UP IN CHAIR. NO CONCERNS.
--- NOTE | 2022-10-03 15:00 | NUR ---
FOCUSES ASSESSMENT COMPLETED. NO CHANGES.
--- NOTE | 2022-10-03 17:20 | NUR ---
PT UP IN CHAIT. 1L NC IN PLACE. PT IS HAVING A COUGHING EPISODE. ROBITUSSIN ANDMINISTERED AND RT CALLED FOR BREATHING TREATMENT.
--- NOTE | 2022-10-03 19:42 | NUR ---
RECEIVED REPORT FROM DAY SHIFT RN. PATIENT IS RESTING IN RECLINER. NO NEEDS NOTED. CALL LIGHT IN REACH.
--- NOTE | 2022-10-03 22:25 | NUR ---
PATIENT ASSESMENT COMPLETED. PATIENTS VITALS TAKEN AND RECORDED. PATIENT ASSISTED TO BR A SBA. PATIENT ABLE TO VOID. PATIENT IS BACK IN CHAIR. PATIENT REMAINS ON 1L VIA NC. PATIENTS IV FLUSHED AND SL PER ORDER. PATIENTS PM MEDS GIVEN PER ORDER. PATIENT DENIES ANY SOB. PATIENT HAS NOTED 2+ EDEMA IN BILAT FEET. PATIENTS FEET REST ON RECLINER PUT UP TO ELEVATED BILAT LOW EXT. PATIENT PROVIDED WITH FRESH ICE WATER. NO FURTHER NEEDS NTOED. CALL LIGHT IN REACH.
--- NOTE | 2022-10-03 22:42 | NUR ---
new tele battery in place per request of primary gladys camacho.
--- NOTE | 2022-10-04 00:22 | NUR ---
PATIENT IS RESTING IN RECLINER WITH EYES CLOSED, RR 18. CALL LIGHT IN REACH.
--- NOTE | 2022-10-04 00:33 | NUR ---
PATIENT REQUESTING NEB TX. RT IN ROOM TO ADMIN NEB. PATIENT RESTING IN RECLINER AT THIS TIME.
--- NOTE | 2022-10-04 01:18 | NUR ---
PATIENT ASSISTED TO THE BR A SBA. PATIENT ABLE TO VOID. PATIENT IS BACK IN RECLINER RESTING. NO FURTHER NEEDS NOTED. CALL LIGHT IN REACH.
--- NOTE | 2022-10-04 02:50 | NUR ---
PATIENT IS RESTING IN RECLINER WITH EYES CLSOED, RR 19. CALL LIGHT IN REACH.
--- NOTE | 2022-10-04 04:24 | NUR ---
PATIENT IS RESTING IN RECLINER, RR 18. CALL LIGHT IN REACH.
--- NOTE | 2022-10-04 05:40 | NUR ---
LAB IN ROOM. VITALS TAKEN AND RECORDED. INTAKE AND OUTPUT RECORDED. AM MEDS PER ORDER. PATIENT REMAINS ON 1L VIA NC. PATIENT DENIES ANY SOB. IV FLUSHED AND SL PER ORDER. NO FURTHER NEEDS NOTED. CALL LIGHT IN REACH.
--- NOTE | 2022-10-04 06:09 | NUR ---
PATIENT IS RESTING IN RECLINER WITH EYES CLOSED, RR 19. CALL LIGHT IN REACH.
--- NOTE | 2022-10-04 07:28 | NUR ---
REPORT RECEIVED FROM PRIYA, ALL QUESTIONS ANSWERED.
--- NOTE | 2022-10-04 08:15 | NUR ---
IN ROOM TO GIVE MORNING MEDICATION AND COMPLETE ASSESSMENT. PT ON OXYMASK AND CONTINUOUS FLUID NS @ 75ML/HR. PT SITTING UP IN BED, CALL LIGHT WITHIN REACH. BREATHING LABORED, ANXIOUS, WANTING TO SPEAK WITH HER DAUGHTER WHEN ABLE.
--- NOTE | 2022-10-04 09:07 | NUR ---
MORNING ASSESSMENT COMPLETE. PT SITTING UP IN RECLINER EATING BREAKFAST. NC IN PLACE, 1L O2 SAT 92%. PT HAS PRODUCTIVE COUGH. COARSE LUNG SOUNDS AT BASES. PT DENIES NEEDS AT THIS TIME. CALL LIGHT IN REACH.
--- NOTE | 2022-10-04 12:06 | NUR ---
PT SITTING UP IN CHAIR, DENIES NEEDS AT THIS TIME. CALL LIGHT IN REACH.
[2022-10-04] MEDS ORDERED: OSELTAMIVIR PHO75 MG PO (13:35)
[2022-10-04] MEDS ORDERED: IPRAT-ALBUT 0.5-3 ML INH (13:36)
== END 2022-10-04 15:07 | disposition home or self-care (01) | DRG 194 ==
LOC: ED 13:23 → MS 17:43
PROVIDERS: ADMIT Internal Medicine; ATTEND Internal Medicine
DX: J10.01 Influenza due to other identified influenza virus with the same other identified influenza virus pneumonia (principal); J44.0 Chronic obstructive pulmonary disease with (acute) lower respiratory infection; J44.1 Chronic obstructive pulmonary disease with (acute) exacerbation; Z20.822 Contact with and (suspected) exposure to COVID-19; E11.9 Type 2 diabetes mellitus without complications; I10 Essential (primary) hypertension; E03.9 Hypothyroidism, unspecified; F41.9 Anxiety disorder, unspecified; F32.A Depression, unspecified; E78.5 Hyperlipidemia, unspecified; Z90.49 Acquired absence of other specified parts of digestive tract; Z90.722 Acquired absence of ovaries, bilateral; Z90.710 Acquired absence of both cervix and uterus; Z88.0 Allergy status to penicillin; Z79.51 Long term (current) use of inhaled steroids; Z79.84 Long term (current) use of oral hypoglycemic drugs; Z79.899 Other long term (current) drug therapy
CPT/HCPCS: 36415; 71045; 71260; 80048; 80053; 83880; 85025; 87502; 94640; 94760; 94761; A9270; C9803; J1650; J1815; J2920; J2930; J3480; Q9967; U0003

== ENCOUNTER 2023-09-03 22:30 | Inpatient (IN) | payer MEDICARE, OTHER ==
[~2023-09-03] VITALS: Ht 157.5 cm; Wt 126.4 kg
[~2023-09-03 22:30] MED LIST changes: +ALBUTEROL2.5 MG/3 M INH; -BRIMONIDINE TART5 ML OU; +OSELTAMIVIR PHO75 MG PO; +VENTOLIN HFA18 GM INH
[2023-09-03 23:06] LABS: HEMATOCRIT 45.5 % (35.0-50.0)
[2023-09-03 23:08] LABS: MCH 28.4 (27-36); PLATELET COUNT 296 K/uL (140-440); RBC 5.29 M/ul (4.3-5.7)
[2023-09-03 23:21] LABS: BANDS, MANUAL DIFF 3; EOSINOPHILS, MANUAL DIFF 3; LYMPHOCYTES, MANUAL DIFF 30; MONOCYTES, MANUAL DIFF 3; NEUTROPHILS, MANUAL DIFF 61
[2023-09-03 23:22] LABS: ALBUMIN 2.9 g/dL (3.4-5.0); ALBUMIN/GLOBULIN RATIO 0.64 (1.1-2.4); BILIRUBIN, TOTAL 0.6 ng/dL (0.2-1.0); BUN/CREATININE RATIO 20.2 (6.0-28.6); CALCIUM 8.5 mg/dL (8.5-10.1); CREATININE, SERUM 0.99 mg/dL (0.55-1.02); MAGNESIUM 1.6 mg/dL (1.8-2.4); PROTEIN, TOTAL 7.4 g/dL (6.4-8.2)
[2023-09-04 00:02] LABS: INFLUENZA B NAA NEGATIVE (NEGATIVE); RESPIRATORY SYNCYTIAL VIR NAA NEGATIVE (NEGATIVE)
--- NOTE | 2023-09-04 03:12 | NUR ---
pt ARRIVED TO MEDSURG FLOOR, STAND PIVOT FROM ED STRETCHER TO BED, HOB ELEVATED FOR COMFORT. VSS, pt DENIES PAIN. ON 4LNC, CPOX IN PLACE, SPO2 SUSTAINING IN THE UPPER 90'S, TITRATED TO 3LNC. SCANT WHEEZING NOTED TO UPPER LOBES, NO DISTRESS NOTED. IV SITE WNL, SALINE LOCKED, FLUSHES EASILY. pT ORIENTED TO POC, CALL LIGHT IN REACH. SLIGHT REDDNESS NOTED TO BUTTOCKS, pt ABLE TO TURN SELF IN BED AND INDEPENDENTLY CHANGE POSITIONS IN BED.
[2023-09-04 03:14] VITALS: BP 124/68
--- NOTE | 2023-09-04 04:54 | NUR ---
rounded on pt, pt resting in bed with eyes closed. on 3lnc, cpox remains in place. spo2 94%, hr 60's. no distress noted, call light in reach.
--- NOTE | 2023-09-04 06:42 | NUR ---
rounded on pt, vs and i&o's collected. pt up sba to bsc and voided 300mls, pt back to bed. pt up to 5-6lnc while ambulating then titrated back down to 3lnc, spo2 sustaining in mid 90's, hr wnl. no additional needs or concerns, call lght in reach.
[2023-09-04 06:45] VITALS: BP 129/76
--- NOTE | 2023-09-04 08:08 | NUR ---
Patient resting in bed, eyes closed, respirations even and non labored. Patient has no notable distress. SP02 94% at this time. Call light within reach.
[2023-09-04 08:38] VITALS: BP 132/82
[2023-09-04] MEDS ORDERED: DORZOLAMIDE-TI1 EACH OU (09:46)
--- NOTE | 2023-09-04 11:45 | NUR ---
Spoke with Tatyana. She states she lives in a large home. She states 11 people reside in the home with she and her spouse, children, their families, and friends. Per Tatyana she and her spouse support them all. Some do have food stamps. Her oldest daughter is "battling cancer". She states there are 10 steps into the home with a rail. She has difficulty with the steps. she states she does not leave the home. Family shop and clean. She does complain the home is always a mess from so many people. I asked why she doesn't ask them to move to their own homes and she says she and her spouse have a difficult time saying no. She states she has cpap, walker, cane x2, and a nebulizer. She has used oxygen in the past and was able to wean off. She used [employer] in the past and would like to use them again if 02 is needed. She also states she is due for another sleep study. She uses the food [facility] and [employer]. She states she doesn't like to use [employer] as they require a list of everyone in the household and their financial status. She is concerned family members may lose some of their benefits or food stamps if she requests help through [employer]. She denies other needs. States finances are very short, but her spouse does get SS and she gets $200 a month in food stamps. I suggested she discuss with her children they are causing a financial hardship for her and her spouse. She plans on dc to home cleared medically. She denies needs.
--- NOTE | 2023-09-04 13:06 | NUR ---
Patient resting, eyes closed, respirations non labored. Patient's oxygen decreased to 1L per nc, sp02 95% at this time. No notable distress.
--- NOTE | 2023-09-04 13:35 | EKG ---
[facility] [address] [facility] [place] [address] Signed Normal sinus rhythm T wave inversion in V1-V2 Abnormal ECG When compared with ECG of 05-MAR-2022 15:49, T wave inversion now present Confirmed by MERLENE DOVER MD ([id number]) on 09/04/2023 1:35:14 PM Electronically Signed By: MERLENE DOVER 09/04/23 1335 PATIENT NAME: MARYJASON CALHOUN Electrocardiogram DATE OF : 52 PHYSICIAN: MERLENE DOVER REPORT #: [id number] REPORT IS CONFIDENTIAL AND NOT TO BE RELEASED WITHOUT AUTHORIZATION
[2023-09-04 13:36] VITALS: BP 129/78
--- NOTE | 2023-09-04 13:38 | NUR ---
AFTER DOING PATIENT'S VITALS I ASKED HER IF SHE WANTED TO TAKE A SHOWER AND SHE SAID SHE IS TO WEAK. AND SHE CAN'T KEEP HER EYES OPEN. PATIENT IS SITTING UP IN HER CHAIR. CALL LIGHT CLOSE BY. SHE SAID SHE WOULD CALL WHEN SHE HAS TO GET UP AND USE THE BATHROOM.
[2023-09-04] MEDS ORDERED: BRIMONIDINE TART5 ML OU (14:04)
--- NOTE | 2023-09-04 14:10 | NUR ---
medications reconciled using pharmacy records, PCP chart notes and patient interview
--- NOTE | 2023-09-04 15:00 | NUR ---
Patient up to restroom to void on room air. Patient's sp02 spot checked post walk on room air, sp02 89-90%. Patient placed back on 1L of oxygen per nc, sp02 increased to 92%, respirations non labored.
--- NOTE | 2023-09-04 17:38 | NUR ---
Patient sitting up in chair eating dinner, no distress. Patient remains on 1L oxygen per nc, sp02 92%, respirations non labored. Patient denies respiratory distress. Call light within reach.
--- NOTE | 2023-09-04 17:50 | NUR ---
AYLIN FROM DR. MC THAT PATIENT IS OK TO START EYE DROPS FROM HOME PER HOME SCHEDULE. PATIENT'S FAMILY TO BRING THEM TO HOSPITAL WITH ORIGINAL BOX SO PHARMACY CAN VERIFY THEM. TOUCHED BASE WITH PHARMACY REGARDING PLAN OF CARE.
--- NOTE | 2023-09-04 18:00 | NUR ---
PATIENT'S FAMILY WAS VISITING. PATIENT IS EATING HER DINNER.
[2023-09-04 18:16] VITALS: BP 130/73
--- NOTE | 2023-09-04 19:34 | NUR ---
REPORT RECEIVED FROM DAY SHIFT NURSE. PT SITTING UP IN CHAIR WATCHING TV. NASAL CANULA IN PLACE. O2 SATS WNL. CALL LIGHT WITHIN REACH. SAFETY PRECAUTIONS IN PLACE. NO NEEDS EXPRESSED AT THIS TIME. WILL CONTINUE TO MONITOR.
[2023-09-04 20:28] VITALS: BP 152/87
--- NOTE | 2023-09-04 22:35 | NUR ---
PT SITTING UP IN CHAIR WATCHING TV. NO SIGNS OF ACUTE DISTRESS. O2 VIA NC IN PLACE. CONTINUOUS PULSE OX IN PLACE AND WNL. NO NEEDS EXPRESSED AT THIS TIME. CALL LIGHT WITHIN REACH. SAFETY PRECAUTIONS IN PLACE.
--- NOTE | 2023-09-05 00:41 | NUR ---
PT AMBULATED FROM CHAIR TO BATHROOM. TOLERATED WELL. PT SITTING UP IN CHAIR WATCHING TV. O2 IN PLACE. CONTINUOUS PULSE OX IN PLACE. NO OTHER NEEDS EXPRESSED AT THIS TIME. CALL LIGHT WITHIN REACH. SAFETY PRECAUTIONS IN PLACE.
--- NOTE | 2023-09-05 02:28 | NUR ---
PT SITTING UP IN CHAIR WATCHING TV. AWAKE AND ALERT. O2 IN PLACE. CONTINUOUS PULSE IN PLACE AND O2 WNL. NO SIGNS OF ACUTE DISTRESS. NO NEEDS EXPRESSED AT THIS TIME. CALL LIGHT WITHIN REACH. SAFETY PRECAUTIONS IN PLACE.
--- NOTE | 2023-09-05 02:31 | NUR ---
CALL LIGHT ANSWERED. WARM BLANKET AND KLEENEX PROVIDED PER REQUEST. DINNER TRAY CLEARED. ROOM TEMP ADJUSTED. PT SITTING IN RECLINER, ASSISTED TO ELEVATE LEGS. NO FURTHER NEEDS.
--- NOTE | 2023-09-05 04:25 | NUR ---
PT SITTING UP IN CHAIR WITH EYES CLOSED. BREATHING EVEN AND UNLABORED. CALL LIGHT WITHIN REACH. O2 IN PLACE. CALL LIGHT WITHIN REACH. SAFETY PRECAUTIONS IN PLACE. NO NEEDS EXPRESSED AT THIS TIME.
[2023-09-05 05:28] LABS: BASOPHILS 0.5 % (0-2); EOSINOPHILS 0.2 % (0-6); HEMATOCRIT 41.1 % (35.0-50.0); HEMOGLOBIN 13.3 g/dL (12.0-18.0); LYMPHOCYTES 15.9 % (24-44); MCHC 32.4 g/dl (30-36); MCV 86.2 fl (81-99); MONOCYTES 8.6 % (0-12); NEUTROPHILS 74.8 % (39-80); PLATELET COUNT 251 K/uL (140-440); RBC 4.77 M/ul (4.3-5.7); RDW 15.7 (10.5-15.0)
[2023-09-05 05:31] VITALS: BP 114/49
[2023-09-05 05:40] LABS: ANION GAP 6.8 (7-21); BUN/CREATININE RATIO 28.37 (6.0-28.6); CALCIUM 8.8 mg/dL (8.5-10.1); CREATININE, SERUM 0.74 mg/dL (0.55-1.02); POTASSIUM 3.8 mmol/L (3.5-5.1)
--- NOTE | 2023-09-05 07:10 | NUR ---
REPORT GIVEN TO DAY SHIFT NURSE. PT RESTING COMFORTABLY IN CHAIR. BREATHING EVEN AND UNLABORED. NO SIGNS OF ACUTE DISTRESS. O2 AND CONTINUOUS PULSE OX IN PLACE. CALL LIGHT WITHIN REACH. SAFETY PRECAUTIONS IN PLACE.
--- NOTE | 2023-09-05 07:42 | NUR ---
REPORT RECEIVED FROM SOLAR PROCESS ENGINEER RN. PATIENT IS RESTING IN THE RECLINER WITH EYES CLOSED. RESPIRATIONS ARE EVEN AND UNLABORED. CALL LIGHT IS WITHIN REACH.
[2023-09-05 08:56] VITALS: BP 146/76
--- NOTE | 2023-09-05 09:02 | NUR ---
PATIENT SITTING UPRIGHT IN THE RECLINER. PATIENT ATE 25% OF BREAKFAST. PATIENT 0800 AND 0900 MEDICATIONS ADMINISTERED PER THE EMAR. PATIENT ON 2 L NASAL CANNULA. PATIENT VITAL SIGNS AND INTAKE AND OUTPUT VALUES TAKEN AND DOCUMENTED. PATIENT STATED NO FURTHER NEEDS AT THIS TIME. CALL LIGHT AND PERSONAL BELONGINGS ARE WITHIN REACH.
--- NOTE | 2023-09-05 09:49 | NUR ---
NOTIFIED THAT THE PATIENT WOULD LIKE TO START THEIR HOME LOVASTATIN PRESCRIPTION. MD STATED THAT THEY WOULD BE IN TO SEE THE PATIENT SOON.
--- NOTE | 2023-09-05 11:02 | NUR ---
PATIENT FULL ASSESSMENT COMPLETE AND DOCUMENTED IN THE CHART. PATIENT WITH 2+ PITTING EDEMA IN BILATERAL LOWER EXTREMITIES. CARDIAC ASSESSMENT UNREMARKABLE. PATIENT WITH STRONG RADIAL PULSES. CAPILLARY REFILL LESS THAN 3 SECONDS IN THE UPPER AND LOWER EXTREMITIES. PATIENT ON 2L NASAL CANNULA. PATIENT ON CONTINUOUS PULSE OXIMETRY AND REMAINING BETWEEN 89-92%. PATIENT LUNG SOUNDS CLEAR IN BILATERAL UPPER LUNG LOBES. LEFT LOWER LOBE WITH EXPIRATORY WHEEZES. RIGHT LOWER LOBE IS CLEAR BUT DIMINISHED. BOWEL SOUNDS ACTIVE IN ALL FOUR QUADRANTS. SAW THE PATIENT AND UPDATED ON PLAN OF CARE. PATIENT SITTING IN THE RECLINER WITH LOWER EXTREMITIES ELEVATED TO HELP WITH THE PITTING EDEMA. PATIENT GIVEN NEW CUP OF TEA. PATIENT STATED NO FURTHER NEEDS AT THIS TIME. CALL LIGHT AND PERSONAL BELONGINGS ARE WITHIN REACH.
--- NOTE | 2023-09-05 11:12 | NUR ---
UR NOTE MCG MET COPD: OBSERVATION CARE (ISC) ON ADMIT 09/03/23 MCG COPD (ISC) INPATIENT 09/05/23 MET CLINICAL INDICATIONS FOR ADMISSION TO INPATIENT CARE MET GL DAY 1
--- NOTE | 2023-09-05 11:25 | NUR ---
Admin tessalon perles 100mg po and tylenol 650mg po for reports of cough/rib pain.
[2023-09-05 13:19] VITALS: BP 114/59
--- NOTE | 2023-09-05 15:38 | NUR ---
PATIENT CONTINUOUS PULSE OXIMETRY WAS ALARMING DUE TO PATIENT USING THE RESTROOM. PATIENT NOW SPEAKING WITH DENNISE RODRIGUEZ. PATIENT CALL LIGHT AND PERSONAL BELONGINGS ARE WITHIN REACH.
[2023-09-05 16:55] VITALS: BP 109/72
--- NOTE | 2023-09-05 19:10 | NUR ---
REPORT RECIEVED FROM MICHAEL BOWDEN AND KARI BOWDEN. PATIENT ON 2LNC pt SATTING WNL. CALL LIGHT WITHIN REACH. CPOX ON. BOARD UPDATED. NO OTHER NEEDS AT THIS TIME.
--- NOTE | 2023-09-05 20:45 | NUR ---
ASSESSMENT AND VITAL SIGNS DONE. CBG DONE. pt SATTING AT 92% ON 2LNC. CPOX ON. pt STATES SHE WANTS TO SLEEP IN THE CHAIR. SCHEDULED MEDICATION ADMINISTERED PER ORDER, SEE MAR. PATIENT DENIES ANY PAIN OR NEEDS AT THIS TIME. CALL LIGHT WITHIN REACH.
--- NOTE | 2023-09-05 22:47 | NUR ---
CPOX ALARMING, THIS RN IN ROOM TO ASSESS. pt RETURNING FROM BATHROOM, SPO2 UPPER 70'S TO LOW 80'S ON 2LNC, pt ALSO COUGHING. TITRATED BRIEFLY TO 5LNC, NEW FINGER SPO2 PROBE IN PLACE D/T PREVIOUS ONE BEING LOOSE FITTING. SPO2 QUICKLY RETURNED TO WNL AND IN THE 90'S. pt BACK DOWN TO 2LNC. pt LEFT RESTING IN CHAIR, CALL LIGHT IN REACH. BLANKET PROVIDED. NO ADDITIONAL NEEDS OR CONCERNS VERBALIZED. PRIMARY RN EMEKA AWARE.
--- NOTE | 2023-09-06 00:06 | NUR ---
PATIENT IN THE CHAIR RESTING. O2 SATURATION 96% ON 2LNC. HR AT 67. CALL LIGHT WITHIN REACH. NO OTHER NEEDS AT THIS TIME.
--- NOTE | 2023-09-06 02:50 | NUR ---
PATIENT RESTING IN CHAIR WITH EYES CLOSED. O2 SATURATION AT 94% ON 2LNC. RR EVEN AND UNLABORED. NO OTHER NEEDS AT THIS TIME. CALL LIGHT WITHIN REACH.
--- NOTE | 2023-09-06 04:07 | NUR ---
PT SITTING UP IN CHAIR WITH EYES CLOSED. BREATHING EVEN AND UNLABORED. O2 IN PLACE. CONTINUOUS PULSE OX SHOWING 02 WNL. CALL LIGHT WITHIN REACH. SAFETY PRECAUTIONS IN PLACE. NO NEEDS EXPRESSED AT THIS TIME.
[2023-09-06 05:06] VITALS: BP 135/74
[2023-09-06 05:33] LABS: BASOPHILS 0.6 % (0-2); EOSINOPHILS 0.8 % (0-6); HEMATOCRIT 43.2 % (35.0-50.0); HEMOGLOBIN 14.3 g/dL (12.0-18.0); LYMPHOCYTES 30.9 % (24-44); MCH 28.2 (27-36); MCHC 33.2 g/dl (30-36); MONOCYTES 8.7 % (0-12); PLATELET COUNT 272 K/uL (140-440); RBC 5.08 M/ul (4.3-5.7); RDW 15.4 (10.5-15.0)
[2023-09-06 05:47] LABS: ANION GAP 8.8 (7-21); BUN/CREATININE RATIO 26.25 (6.0-28.6); CALCIUM 8.8 mg/dL (8.5-10.1); CREATININE, SERUM 0.8 mg/dL (0.55-1.02); POTASSIUM 3.8 mmol/L (3.5-5.1)
--- NOTE | 2023-09-06 06:03 | NUR ---
pt CALLED TO HAVE LINNENS REPLACED. FRESH LINNEN GIVEN. pt SATTING AT 95% ON 2LNC. CALL LIGHT WITHIN REACH. NO OTHER NEEDS AT THIS TIME.
--- NOTE | 2023-09-06 07:38 | NUR ---
REPORT RECEIVED FROM LEATHER CURRIER RN. PATIENT IS SITING IN THE RECLINER WITH EYES CLOSED. RESPIRATIONS ARE EVEN AND UNLABORED. CALL LIGHT AND PERSONAL BELONGINGS ARE WITHIN REACH.
[2023-09-06 09:43] VITALS: BP 117/45
--- NOTE | 2023-09-06 09:49 | NUR ---
Spoke with patient, states she would prefer [facility] for Home O2. Oxygen orders faxed to [facility].
--- NOTE | 2023-09-06 10:01 | NUR ---
PATIENT FULL ASSESSMENT COMPLETE AND DOCUMENTED IN THE CHART. PATIENT LUNG SOUNDS WITH EXPIRATORY WHEEZE BILATERALLY IN ALL LUNG [place]. RHYTHM IS REGULAR. PATIENT CARDIAC SOUNDS WITH NORMAL S1 AND S2. CAPILLARY REFILL IS LESS THAN 3 SECONDS IN THE UPPER AND LOWER EXTREMITIES. PATIENT WITH 2+ PITTING EDEMA BILATERALLY IN THE LOWER EXTREMITIES. PATIENT EDUCATED ON THE IMPORTANCE OF KEEPING THE FEET ELEVATED TO HELP WITH THE EDEMA. PATIENT BOWEL SOUNDS ACTIVE. PATIENT EXPERIENCING 2/10 PAIN A HEADACHE. PATIENT GIVEN 0900 MEDICATIONS PER THE EMAR. PRN TYLENOL AND TESSULON PEARLS. IV SITE IS CLEAN, DRY, AND INTACT. IV SITE FLUSHED WITH 10 ML NORMAL SALINE. PATIENT IS SITTING UPRIGHT IN THE RECLINER. NEW CUP OF COFFEE GIVEN TO THE PATIENT. PATIENT STATED NO FURTHER NEEDS AT THIS TIME. CALL LIGHT AND PERSONAL BELONGINGS ARE WITHIN REACH.
--- NOTE | 2023-09-06 10:46 | NUR ---
MS MERCER. 15 MINUTES. PROVIDED GUIDEPOST WITH CONTACT CARD AND PRAYER CARD. PROVIDED PRAYER. PT EXPRESSED GRATITUDE.
[2023-09-06] MEDS ORDERED: CEPHALEXIN500 MG PO (10:58)
[2023-09-06] MEDS ORDERED: IPRAT-ALBUT 0.5-3 ML INH (11:03)
[2023-09-06] MEDS ORDERED: PREDNISONE20 MG PO (11:04)
--- NOTE | 2023-09-06 13:32 | NUR ---
UR NOTE MCG COPD (ISC) INPATIENT 09/06/23 MET GL DAY 2 AND 3
--- NOTE | 2023-09-06 14:56 | NUR ---
IN TO ANSWER CALL LIGHT. IV REMOVED WNL. VITALS COMPLETE. NO OTHER NEEDS FROM THIS RN AT THIS TIME. CALL LIGHT IN REACH. PT SITTING UP IN RECLINER.
[2023-09-06 14:58] VITALS: BP 134/68
== END 2023-09-06 15:26 | disposition home or self-care (01) | DRG 189 ==
LOC: ED 22:30 → MS 22:31
PROVIDERS: Emergency Medicine; ADMIT Family Medicine; ATTEND Family Medicine
DX: J96.01 Acute respiratory failure with hypoxia (principal); J44.1 Chronic obstructive pulmonary disease with (acute) exacerbation; I50.30 Unspecified diastolic (congestive) heart failure; I11.0 Hypertensive heart disease with heart failure; I27.20 Pulmonary hypertension, unspecified; E11.9 Type 2 diabetes mellitus without complications; Z66 Do not resuscitate; E03.9 Hypothyroidism, unspecified; F41.9 Anxiety disorder, unspecified; F32.A Depression, unspecified; H40.9 Unspecified glaucoma; E83.42 Hypomagnesemia; R77.8 Other specified abnormalities of plasma proteins; F12.90 Cannabis use, unspecified, uncomplicated; Z90.49 Acquired absence of other specified parts of digestive tract; Z90.710 Acquired absence of both cervix and uterus; Z88.0 Allergy status to penicillin; Z79.51 Long term (current) use of inhaled steroids; Z79.899 Other long term (current) drug therapy; Z79.84 Long term (current) use of oral hypoglycemic drugs; Z79.890 Hormone replacement therapy; Z11.52 Encounter for screening for COVID-19
CPT/HCPCS: 36415; 71045; 80048; 80053; 83735; 83880; 84484; 85025; 87502; 93005; 93010; 94640; 94644; 94761; 94762; 96372; 96374; 97116; 97161; 97165; 97535; 99285-25; A9270; C9803; G0378; J1650; J1815; J2930; J7040; J7512; U0002

== ENCOUNTER 2025-07-14 16:53 | Emergency (ER) | payer MEDICARE, OTHER ==
[~2025-07-14] VITALS: Ht 157.5 cm; Wt 98.0 kg
[~2025-07-14 16:53] MED LIST changes: +BRIMONIDINE TART5 ML OU; +CEPHALEXIN500 MG PO; +DORZOLAMIDE-TI1 EACH OU; +PREDNISONE20 MG PO
[2025-07-14] MEDS ORDERED: TETRACAINE HCL 0.5% 4 ML BTL OD SCH (17:15)
[2025-07-14] MEDS ORDERED: FLUORESCEIN SOD 1 EA STRP OD ONE (17:15)
[2025-07-14 17:57] VITALS: BP 143/77
== END 2025-07-14 17:58 | disposition home or self-care (01) ==
LOC: ED 16:53
DX: T49.8X1A Poisoning by other topical agents, accidental (unintentional), initial encounter (principal); L25.0 Unspecified contact dermatitis due to cosmetics; I11.0 Hypertensive heart disease with heart failure; I50.9 Heart failure, unspecified; E11.9 Type 2 diabetes mellitus without complications; J44.9 Chronic obstructive pulmonary disease, unspecified; Z88.0 Allergy status to penicillin; Z79.84 Long term (current) use of oral hypoglycemic drugs; Z79.890 Hormone replacement therapy; Z79.899 Other long term (current) drug therapy
CPT/HCPCS: 99283